=== PATIENT | female | born 1970 | race Caucasian/White ===

== ENCOUNTER → 2016-09-16 | Outpatient (CLI) | payer BC, OTHER ==
[~2016-09-16] MED LIST: B COCAP PO; CALCTAB65 PO; CINN1CAP2 PO; IBUP1CAP PO; LEVO125T72 PO; OPTIRAY 320 IV PRN; OXYC7.5T65 PO; RXC5 PO; TAMS0.4C38 PO; THY/30 PO; THYR90TA PO; TRAM-10 PO; [UNRECOGNIZED DRUG - CODE] PO
--- NOTE | 2016-09-16 19:26 | DIAGNOSTIC IMAGING REPORT ---
CT OF THE ABDOMEN AND PELVIS WITH AND WITHOUT CONTRAST HEMATURIA PROTOCOL CLINICAL HISTORY: Microhematuria. COMPARISON STUDY: None. TECHNIQUE: Unenhanced and split bolus phase imaging of the abdomen and pelvis was performed. Injection of 119 cc Optiray [address] DOSE: 585.28 mGy.cm FINDINGS: Lung bases are clear. Note is made of a 5 mm calculus likely within an infundibulum of the mid left renal collecting system. There is a 2 mm calculus within the lower pole of the left kidney. No ureteral calculi are identified. There is no hydronephrosis or hydroureter. No upper tract urothelial lesions are identified there is a 7 mm cyst within the upper pole of the right kidney. There are no solid renal lesions. The liver, spleen, adrenal glands and pancreas are normal. There is no evidence for a bowel obstruction. There is a 3 cm right ovarian cyst and a dominant follicle within the left ovary. There is no adenopathy or ascites. Skeletal structures are unremarkable. IMPRESSION: 1. Left-sided nephrolithiasis. No ureteral calculi or hydronephrosis. 2. No upper tract urothelial lesions. Electronically signed by: Charli Ragland M.D. 09/16/2016 7:24 PM Dictated Date/Time: 09/16/2016 1:01 PM
== END | disposition home or self-care (01) ==
LOC: C.CTS 12:16
PROVIDERS: ATTEND Urology
DX: R31.29 Other microscopic hematuria (principal); N20.0 Calculus of kidney

== ENCOUNTER → 2016-10-14 | Outpatient (CLI) | payer OTHER ==
[~2016-10-14] MED LIST changes: -B COCAP PO; -CALCTAB65 PO; -CINN1CAP2 PO; -OPTIRAY 320 IV PRN; -RXC5 PO; -THY/30 PO; -THYR90TA PO; -TRAM-10 PO; -[UNRECOGNIZED DRUG - CODE] PO
--- NOTE | 2016-10-14 18:33 | DIAGNOSTIC IMAGING REPORT ---
KUB HISTORY: N20.0 Nephrolithiasis COMPARISON: Abdomen and pelvis CT 09/16/2016. FINDINGS: The bowel gas pattern is unremarkable. There are no dilated loops of small bowel to suggest an obstruction. There are 2 stones within the left kidney, unchanged. The dominant stone within the interpolar region measures 5 mm. No right renal or ureteral calculi. Punctate calcification within the right deep pelvis consistent with phleboliths. No pneumoperitoneum or pneumatosis. IMPRESSION: Stable left-sided nephrolithiasis. Electronically signed by: Red Nino M.D. 10/14/2016 6:32 PM Dictated Date/Time: 10/14/2016 6:31 PM
== END | disposition home or self-care (01) ==
LOC: C.RAD 17:54
PROVIDERS: ATTEND Urology
DX: N20.0 Calculus of kidney (principal)

== ENCOUNTER → 2016-10-15 | Day surgery (SDC) | payer OTHER ==
--- NOTE | 2016-09-29 12:58 | DIAGNOSTIC IMAGING REPORT ---
TWO VIEW CHEST CLINICAL HISTORY: Preoperative examination. Nephrolithiasis. FINDINGS: PA and lateral chest radiographs are compared to study dated 07/12/2014. The cardiomediastinal silhouette is unremarkable. The lungs and pleural spaces are clear. There is no pneumothorax. The bony thorax appears intact. Fusion hardware is noted in the lower cervical spine. IMPRESSION: No active disease in the chest. Electronically signed by: Theo Cole M.D. 09/29/2016 12:56 PM Dictated Date/Time: 09/29/2016 12:55 PM
[2016-09-29 13:23] LABS: BASO % 0.5 %; BASO ABS # 0.03 K/uL (0-0.2); COMPLETE YES; EOS % 5.8 %; HEMATOCRIT 43.4 % (37-47); IG% 0.2 %; LYMPH % 40.4 %; MEAN CELL VOLUME 92.5 fL (80-100); MEAN CORPUSCULAR HEMOGLOBIN 32.4 pg (25-34); MEAN PLATELET VOLUME 10.8 fL (7.4-10.4); MONO % 10.5 %; NEUT % 42.6 %; PLATELET COUNT 162 K/uL (130-400); RED BLOOD COUNT 4.69 M/uL (4.2-5.4)
[2016-09-29 14:00] LABS: BLOOD UREA NITROGEN 8 mg/dl (7-18); BUN/CREATININE RATIO 7.5 (10-20); CARBON DIOXIDE 28 mmol/L (21-32); CHLORIDE 106 mmol/L (98-107); GLUCOSE 78 mg/dl (70-99); SODIUM 142 mmol/L (136-145)
[2016-10-05 10:19] VITALS: Ht 157.5 cm; Wt 65.9 kg
[~2016-10-15] VITALS: Ht 157.5 cm; Wt 65.9 kg
[~2016-10-15] MED LIST changes: +ATROPINE SULFATE 0.1 MG/ML 5ML SYR IV PRN; +CIPROFLOXACIN 400MG / D5W IV SCH; +EpHEDrine SULFATE INJ 50 MG/ML AMP IV PRN; +FENTANYL CITRATE INJ 50 MCG/1 ML 2 ML VIAL IV PRN; +FENTANYL CITRATE INJ 50 MCG/1 ML 2 ML VIAL ONE; +FLUMAZENIL 0.1 MG/1 ML 10 ML VIAL IV PRN; +HYDROmorphone INJ 1 MG/ML SYR ONE; +HYDROmorphone INJ 2 MG/ML SYR/VIAL IV PRN; +LABETALOL HCL IV 5 MG/ML 20ML IV PRN; +LACTATED RINGER'S 1000ML 1,000 ML IV SCH; +LIDOCAINE HCL 2% 2 ML VIAL (20MG/ML) ONE; +MEPERIDINE HCL 25 MG/ML CARP IV PRN; +MIDAZOLAM HCL 1 MG/ML 2ML VIAL ONE; +NALOXONE HCL 0.4 MG/1 ML VIAL/CARP IV PRN; +ONDANSETRON INJ 2 MG/ML 2 ML VIAL IV PRN; +OXYCODONE/ACETAMINOPHEN 5-325 TAB PO PRN; +PHENYLEPHRINE 100MCG/ML 5ML SYR IV PRN; +PROPOFOL IV EMULSION 10 MG/ML 20 ML VIAL IV ONE; +SCOPOLAMINE 1.5 MG TDSY TD ONE
--- NOTE | 2016-10-15 07:02 | History & Physical Bridge Note ---
H&P Re-Evaluation Bridge Note: I have examined the patient, reviewed the History & Physical and in the interval since the performance of the History & Physical I have noted the following changes of clinical significance: No changes noted
--- NOTE | 2016-10-15 07:40 | Discharge Instructions ---
Discharge Instructions Admission Reason for Admission: Stones Discharge Discharge Diagnosis / Problem: L stones s/p ESWL Discharge Goals Goal(s): Decrease discomfort, Improve function, Improve disease control, Therapeutic intervention Activity Recommendations Activity Limitations: per Instructions/Follow-up section Lifting Limitations: gradually increase as tolerated Exercise/Sports Limitations: rest today, gradually increase as tolerated May Resume Sexual Activity: when tolerated Shower/Bathe: no limitations Driving or Machine Use: resume 1 day after discharge . Instructions / Follow-Up Instructions / Follow-Up As scheduled in office with [facility] X[facility] prior to visit Strain urine as instructed, bring in fragments Discharge Diet Recommended Diet: Regular Diet Procedures Procedures Performed: Left Extracorporeal Shock Wave Lithotripsy Pending Studies Studies pending at discharge: no Medical Emergencies . Who to Call and When: Medical Emergencies: If at any time you feel your situation is an emergency, please call 911 immediately. . Non-Emergent Contact Non-Emergency issues call your: Urologist Call Non-Emergent contact if: you have a fever, temperature is above 101, your pain is not controlled, your pain is worsening, your pain is concerning you, you have any medication questions . . "Provider Documentation" section prepared by Angel Bojorquez. VTE Core Measure Inpt VTE Proph given/why not?: SCD's [place] Drug Monitoring Program Search Results: patient reviewed within database, no issues identified
--- NOTE | 2016-10-15 07:41 | [facility] Post Operative Brief Note ---
Immediate Operative Summary Operative Date Oct 15, 2016. Pre-Operative Diagnosis Left Renal Calculi Post-Operative Diagnosis Same Procedure(s) Performed Left Extracorporeal Shock Wave Lithotripsy Surgeon Dr. 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
--- NOTE | 2016-10-15 07:55 | OPERATIVE REPORT ---
DATE OF OPERATION: 10/15/2016 PREOPERATIVE DIAGNOSIS: Left renal stone. POSTOPERATIVE DIAGNOSIS: Same. PROCEDURE: Left-sided renal extracorporeal shock wave lithotripsy. SURGEON: Dr. Angel Bojorquez. TILE MECHANIC: None. ANESTHESIA: General anesthesia with laryngeal mask. COMPLICATIONS: None. FINDINGS: Excellent stone fragmentation on fluoroscopy. DETAILS OF PROCEDURE: The patient was brought to the litho suite. He was correctly identified and the stone was visualized on his most recent x-rays. After the correct time out was performed the patient was positioned over the therapy head. An adequate level of anesthesia was administered. The extracorporeal shockwave lithotripsy treatment was then commenced. Please see the [facility] sheet for complete treatment summary. After completion of the procedure the patient was taken to the recovery room in stable condition. I attest to the content of the Intraoperative Record and any orders documented therein. Any exceptio ns are noted below.
--- NOTE | 2016-10-15 08:13 | Anesthesiology Progress Note ---
Anesthesia Post Op Note Date & Time Oct 15, 2016 at 08:13 Vital Signs Pain Intensity: 0 Vital Signs Past 12 Hours Date Time Temp Pulse Resp B/P Pulse Ox O2 Delivery O2 Flow Rate FiO2 10/15/16 07:48 36.2 56 16 106/64 100 Mask 6 10/15/16 06:23 36.8 63 20 122/81 99 Room Air Notes Mental Status: alert / awake / arousable, participated in evaluation Pt Amnestic to Procedure: Yes Nausea / Vomiting: adequately controlled Pain: adequately controlled Airway Patency, RR, SpO2: stable & adequate BP & HR: stable & adequate Hydration State: stable & adequate Anesthetic Complications: no major complications apparent
[2016-10-15 08:59] VITALS: BP 105/54; PULSE 49; TEMP 36.7; O2SAT 99
--- NOTE | 2016-10-15 09:35 | Anesthesia Progress Nt - [facility] ---
Anesthesia Post Op Note Date & Time Oct 15, 2016 at 09:35 Vital Signs Pain Intensity: 1 Vital Signs Past 12 Hours Date Time Temp Pulse Resp B/P Pulse Ox O2 Delivery O2 Flow Rate FiO2 10/15/16 08:59 36.7 49 16 105/54 99 Room Air 10/15/16 08:36 36.7 48 16 119/79 98 Room Air 10/15/16 08:17 56 19 98 10/15/16 08:17 36.6 57 19 10/15/16 08:13 109/64 10/15/16 08:12 44 14 99 10/15/16 08:12 44 14 10/15/16 08:09 113/65 10/15/16 08:07 43 12 100 10/15/16 08:07 43 12 10/15/16 08:03 106/61 10/15/16 08:02 45 6 100 10/15/16 08:02 45 6 10/15/16 07:58 111/64 10/15/16 07:57 47 19 10/15/16 07:57 46 19 100 10/15/16 07:53 109/68 10/15/16 07:52 49 15 100 10/15/16 07:52 49 15 10/15/16 07:50 110/69 10/15/16 07:48 36.2 56 16 106/64 100 Mask 6 10/15/16 06:23 36.8 63 20 122/81 99 Room Air Notes Mental Status: alert / awake / arousable, participated in evaluation Pt Amnestic to Procedure: Yes Nausea / Vomiting: adequately controlled Pain: adequately controlled Airway Patency, RR, SpO2: stable & adequate BP & HR: stable & adequate Hydration State: stable & adequate Anesthetic Complications: no major complications apparent
== END | disposition home or self-care (01) ==
LOC: X.SURG 06:09
PROVIDERS: ATTEND Urology
DX: N20.0 Calculus of kidney (principal); N94.6 Dysmenorrhea, unspecified; E05.00 Thyrotoxicosis with diffuse goiter without thyrotoxic crisis or storm; Z91.89 Other specified personal risk factors, not elsewhere classified; E89.0 Postprocedural hypothyroidism; E78.00 Pure hypercholesterolemia, unspecified; F41.9 Anxiety disorder, unspecified; M19.90 Unspecified osteoarthritis, unspecified site; Z98.51 Tubal ligation status; E78.5 Hyperlipidemia, unspecified

== ENCOUNTER → 2016-10-26 | Outpatient (CLI) | payer OTHER ==
[~2016-10-26] MED LIST changes: -ATROPINE SULFATE 0.1 MG/ML 5ML SYR IV PRN; -CIPROFLOXACIN 400MG / D5W IV SCH; -EpHEDrine SULFATE INJ 50 MG/ML AMP IV PRN; -FENTANYL CITRATE INJ 50 MCG/1 ML 2 ML VIAL IV PRN; -FENTANYL CITRATE INJ 50 MCG/1 ML 2 ML VIAL ONE; -FLUMAZENIL 0.1 MG/1 ML 10 ML VIAL IV PRN; -HYDROmorphone INJ 1 MG/ML SYR ONE; -HYDROmorphone INJ 2 MG/ML SYR/VIAL IV PRN; -LABETALOL HCL IV 5 MG/ML 20ML IV PRN; -LACTATED RINGER'S 1000ML 1,000 ML IV SCH; -LIDOCAINE HCL 2% 2 ML VIAL (20MG/ML) ONE; -MEPERIDINE HCL 25 MG/ML CARP IV PRN; -MIDAZOLAM HCL 1 MG/ML 2ML VIAL ONE; -NALOXONE HCL 0.4 MG/1 ML VIAL/CARP IV PRN; -ONDANSETRON INJ 2 MG/ML 2 ML VIAL IV PRN; -OXYCODONE/ACETAMINOPHEN 5-325 TAB PO PRN; -PHENYLEPHRINE 100MCG/ML 5ML SYR IV PRN; -PROPOFOL IV EMULSION 10 MG/ML 20 ML VIAL IV ONE; -SCOPOLAMINE 1.5 MG TDSY TD ONE
--- NOTE | 2016-10-26 13:52 | DIAGNOSTIC IMAGING REPORT ---
KUB HISTORY: N20.0 [id number] COMPARISON: [facility] 10/14/2016. FINDINGS: The bowel gas pattern is unremarkable. There are no dilated loops of small bowel to suggest an obstruction. There is again suggestion of a punctate stone within the lower pole of the left kidney. This remains unchanged. A 5 mm stone within the left kidney seen on the prior study is not clearly visualized. The right renal shadow is mostly obscured by overlying bowel gas. No definite right renal or ureteral calculi. Punctate calcifications within the right deep pelvis remain stable and likely represent phleboliths. No pneumoperitoneum or pneumatosis. IMPRESSION: A single punctate stone within the lower pole of the left kidney, unchanged. The previously described 5 mm stone within the left kidney is not visualized at this time. This could be obscured by overlying bowel gas. Electronically signed by: Red Nino M.D. 10/26/2016 1:50 PM Dictated Date/Time: 10/26/2016 1:47 PM
== END | disposition home or self-care (01) ==
LOC: C.RAD 13:05
PROVIDERS: ATTEND Urology
DX: N20.0 Calculus of kidney (principal)

== ENCOUNTER → 2017-06-28 | Outpatient (CLI) | payer OTHER ==
[~2017-06-28] MED LIST changes: -OXYC7.5T65 PO
--- NOTE | 2017-06-28 13:45 | DIAGNOSTIC IMAGING REPORT ---
KUB HISTORY: Follow-up study to assess left-sided kidney stones. N20.0 [id number] COMPARISON: [facility] 10/26/2016, CT 09/16/2016. FINDINGS: The bowel gas pattern is non-obstructive. There is no organomegaly. Left-sided nephrolithiasis appears unchanged from comparison. No definite right-sided nephrolithiasis or ureteral calculi identified. Phleboliths of the right hemipelvis are unchanged. No pneumoperitoneum or pneumatosis. No fracture. IMPRESSION: 1. Unchanged appearance of left-sided nephrolithiasis. 2. No ureteral calculi identified. Electronically signed by: Dash Sullivan M.D. 06/28/2017 1:43 PM Dictated Date/Time: 06/28/2017 1:41 PM
== END | disposition home or self-care (01) ==
LOC: C.RAD 12:59
PROVIDERS: ATTEND Urology
DX: N20.0 Calculus of kidney (principal)